=== PATIENT | female | born 1975 | race Caucasian/White ===

== ENCOUNTER → 2019-02-17 08:19 | Outpatient (CLI) | payer OTHER, SELFPAY ==
--- NOTE | 2019-02-17 | DI.MG.S_ITS ---
BILATERAL DIGITAL SCREENING MAMMOGRAM 3D/2D WITH CAD: 02/17/2019 CLINICAL: Routine screening. Family history of breast cancer. Comparison is made to exam dated: 06/02/2015 mammogram - [facility]. There are scattered fibroglandular elements in both breasts. Current study was also evaluated with a Computer Aided Detection (CAD) system. No significant masses, calcifications, or other findings are seen in either breast. There has been no significant interval change. IMPRESSION: NEGATIVE There is no mammographic evidence of malignancy. A 1 year screening mammogram is recommended. This exam was interpreted at Station ID: [id number]. NOTE: For mammograms, a report in lay terms will be sent to the patient. Approximately 15% of breast malignancies will not be visualized mammographically. In the management of a palpable breast mass, a negative mammogram must not discourage biopsy of a clinically suspicious lesion. Electronically Signed By: Rodney britton/balaji:02/19/2019 07:29:32 letter sent: Normal Exam ACR BI-RADS Category 1: Negative 3341F
== END ==
PROVIDERS: PCP Family Medicine; Visit Provider Family Medicine
DX: Z12.31 Encounter for screening mammogram for malignant neoplasm of breast (principal); Z80.3 Family history of malignant neoplasm of breast
CPT/HCPCS: 77063; 77067

== ENCOUNTER → 2020-05-28 09:42 | Outpatient (CLI) | payer OTHER, SELFPAY ==
--- NOTE | 2020-05-28 09:44 | DI.US.S_ITS ---
PROCEDURE: US PERIPH VENOUS LOW EXTREM RT INDICATIONS: RIGHT LEG PAIN TECHNIQUE: Real-time imaging, as well as color and pulse Doppler interrogation, were performed of the lower extremity deep veins from the inguinal ligament to the popliteal fossa. COMPARISON: None. FINDINGS: The common femoral, femoral and popliteal veins are normally compressible, and free of intraluminal thrombus. Color and pulse Doppler demonstrate normal phasic intraluminal flow. There is normal augmentation response to distal compression maneuver. IMPRESSION: No sonographic evidence of DVT. Dictated by: Justin Hdez M.D. on 05/28/2020 at 10:51 Approved by: Justin Hdez M.D. on 05/28/2020 at 10:52
== END ==
PROVIDERS: PCP Family Medicine; Referring Provider Internal Medicine; Visit Provider Internal Medicine
DX: M79.661 Pain in right lower leg (principal)
CPT/HCPCS: 93971

== ENCOUNTER → 2021-06-30 07:40 | Outpatient (CLI) | payer OTHER, SELFPAY ==
--- NOTE | 2021-06-30 | DI.MG.S_ITS ---
BILATERAL DIGITAL SCREENING MAMMOGRAM 3D/2D WITH CAD: 06/30/2021 CLINICAL: Routine screening. Family history of breast cancer. Comparison is made to exams dated: 02/17/2019 mammogram and 06/02/2015 mammogram - [facility]. There are scattered fibroglandular elements in both breasts. Current study was also evaluated with a Computer Aided Detection (CAD) system. No significant masses, calcifications, or other findings are seen in either breast. There has been no significant interval change. IMPRESSION: NEGATIVE There is no mammographic evidence of malignancy. A 1 year screening mammogram is recommended. This exam was interpreted at Station ID: [id number]. NOTE: For mammograms, a report in lay terms will be sent to the patient. Approximately 15% of breast malignancies will not be visualized mammographically. In the management of a palpable breast mass, a negative mammogram must not discourage biopsy of a clinically suspicious lesion. Electronically Signed By: Marcial pickard/balaji:06/30/2021 08:59:10 letter sent: Normal Exam ACR BI-RADS Category 1: Negative 3341F
== END ==
PROVIDERS: PCP Family Medicine; Referring Provider Family Medicine; Visit Provider Family Medicine
DX: Z12.31 Encounter for screening mammogram for malignant neoplasm of breast (principal); Z80.3 Family history of malignant neoplasm of breast
CPT/HCPCS: 77063; 77067

== ENCOUNTER → 2021-07-15 14:49 | Outpatient (CLI) | payer OTHER, SELFPAY ==
[2021-07-15 15:30] LABS: COVID19 -Nasal RAPID Negative (Negative)
== END ==
PROVIDERS: PCP Family Medicine; Visit Provider Surgery
DX: Z01.812 Encounter for preprocedural laboratory examination (principal); Z20.822 Contact with and (suspected) exposure to COVID-19
CPT/HCPCS: 87635; C9803

== ENCOUNTER 2021-07-16 13:17 | Day surgery (SDC) | payer OTHER, SELFPAY ==
--- NOTE | 2021-07-16 | PATH_ITS ---
[facility] Accession Number: [id number] . 01 Material submitted: . PART A: rectum - RECTAL POLYP PART B: rectum - RECTAL POLYP BASE . 02 Diagnosis: A. Rectum, Polyp, Biopsy: Tubulovillous adenoma. No evidence of malignancy or high-grade dysplasia. The excision appears complete. . B. Rectal Polyp Base, Biopsies: Colonic mucosa with no diagnostic abnormality. Negative for active, chronic, and microscopic colitis. Negative for dysplasia and malignancy. MRV 07/21/2021 1046 Local . 02 Electronically signed: . Kymberly Martinez MD, Pathologist NPI- [id number] . 01 Gross description: . A. Received in formalin, labeled rectal polyp, is one piece of hodge, soft tissue measuring 2.3 x 1.2 x 1.8 cm. The tissue is inked, serially sectioned into six slices, and entirely submitted in cassettes A1-A3, with two slices per cassette. B. Received in formalin, labeled rectal polyp base, are two pieces of hodge, soft tissue measuring 1.0 x 0.5 x 0.4 cm an 0.6 x 0.5 x 0.4 cm. The first segment is inked, trisected, and entirely submitted in cassette B1. The second segment is inked, bisected, and entirely submitted in cassette B2. ([id number]) /FRR 07/19/2021 0945 Local . 02 Pathologist provided ICD-10: D12.8 . 02 CPT . 732000, 239860 Specimen Comment: A courtesy copy of this report has been sent to [phone] Performed at: 01 [facility] [address] [place] [address] [address] [facility] [place], [place] [id number] MD Fito Francis MD Phone: [phone] Performed at: 02 [facility] [address] [place] [id number] MD Kymberly Martinez MD Phone: [phone]
[2021-07-16 13:34] VITALS: BP 130/89; PULSE 104; RESP 16; TEMP 36.6; O2SAT 98
[2021-07-16 13:36] VITALS: BMI 26.1
[2021-07-16] MEDS: LACTATED RINGERS 1,000 ML 42 ML IV (14:00)
--- NOTE | 2021-07-16 14:03 | PM.PREOP ---
Pre-operative Note COVID-19 COVID-19 status: Negative Result date/Date tested (Pos, Neg/Pending): 07/15/21 Interval Note History & Physical reviewed/Exam performed by Physician: Yes Changes to H&P: No ASA Class (for procedural sedation): II
[2021-07-16] MEDS: MIDAZOLAM 5 MG/5 ML VIAL IV (14:09)
[2021-07-16] MEDS: fentaNYL 250 MCG/5 ML INJ IV (14:09)
--- NOTE | 2021-07-16 14:54 | PM.OP.COLON ---
Operative Date/Time/Diagnoses Date of procedure: 07/16/21 Time of procedure: 14:54 Pre-op diagnosis: Change in bowel habits Post-op diagnosis: same Procedure & Clinicians Study performed: Colonoscopy Same procedure as scheduled: Yes Surgeon: Adarsh Roland Procedure Notes Procedure in detail: Procedure: The patient was brought to the endoscopy suite, placed in left lateral decubitus position. The patient was connected to monitoring devices. A time-out was performed. Sedation was administered. Once the patient was adequately sedated, a digital rectal exam was performed and was normal. The scope was then inserted and advanced to the cecum where the appendiceal orifice was identified and photographed. The scope was then slowly withdrawn over greater than 6 minutes. Mucosa was thoroughly inspected. There were no polyps until the mid rectum where a large pedunculated polyp was seen emanating from the mid rectum at about 5 cm from the dentate line. This large polyp appeared to be on a long stalk. A snare was placed around the base of the stalk and cautery was used to excise the polyp. The Deluca Net was introduced to retrieve the polyp which turned out to be about 3 cm in diameter. The base was clean and blood less however we decided to take additional tissue from the base to be sure there is no additional adenomatous tissue left behind. The mucosa here was lifted with saline in 2 locations near the distal edge of the base of the polyp and the hot snare was used to remove additional tissue which was sent as ?polyp base. Finally we went back in injected some tattoo ink along the distal edge of the biopsy site. The scope was retroflexed in the rectum. No other abnormalities were noted. The scope was straightened and removed. The patient was awakened and brought to recovery. Versed: 11 mg Fentanyl: 250 mcg EBL: 5 mL Findings: 3 cm pedunculated polyp on a stalk emanating from mid rectum. Scope withdrawal time: 26 Sedation minutes: 42 Post-procedure Recommendations: Will call with biopsy results Disposition: PACU
[2021-07-16 14:57] VITALS: BP 118/80; PULSE 118; RESP 24; TEMP 37.7; O2SAT 96
[2021-07-16 15:02] VITALS: BP 139/91; PULSE 120; RESP 24; O2SAT 96
[2021-07-16 15:07] VITALS: BP 139/88; PULSE 116; RESP 18; O2SAT 94
[2021-07-16 15:12] VITALS: BP 156/97; PULSE 112; RESP 24; O2SAT 95
[2021-07-16 15:17] VITALS: BP 145/105; PULSE 109; RESP 17; O2SAT 94
== END 2021-07-16 15:26 | disposition home or self-care (01) ==
PROVIDERS: PCP Family Medicine; Referring Provider Surgery; Visit Provider Surgery
PROC: 0DJD8ZZ Inspection of Lower Intestinal Tract, Via Natural or Artificial Opening Endoscopic (ICD-10-PCS; CPT 45378; principal; 2021-07-16 13:30)
DX: R19.4 Change in bowel habit (principal); D12.8 Benign neoplasm of rectum
CPT/HCPCS: 45390; 45381; 99152; 99153; J2250; J3010

== ENCOUNTER 2022-10-01 00:07 | Emergency (ER) | payer OTHER, SELFPAY ==
[2022-10-01] VITALS (13 sets, daily range): BP systolic 93–130; BP diastolic 51–87; PULSE 92–105; RESP 13–24; TEMP 36.6; O2SAT 88–96; BMI 23.0
--- NOTE | 2022-10-01 00:25 | DI.RAD.S_ITS ---
PROCEDURE: XR CHEST 1V INDICATIONS: chest pain TECHNIQUE: One view of the chest was acquired. COMPARISON: None. FINDINGS: Surgical changes and devices: None. Lungs and pleura: Lungs are clear. No pleural effusions or pneumothorax. Mediastinum: Mediastinal contours appear normal. Heart size is normal. Bones and chest wall: No suspicious bony lesions. Overlying soft tissues appear unremarkable. IMPRESSION: 1. No acute cardiopulmonary disease. Dictated by: Fito Ortiz M.D. on 10/01/2022 at 1:51 Approved by: Fito Ortiz M.D. on 10/01/2022 at 1:51
[2022-10-01] MEDS: ASPIRIN 81 MG CHEW TAB 324 MG PO (00:29)
[2022-10-01 00:39] LABS: Add Manual Diff / Slide Review NO; Basophils Absolute Auto 100 /uL (0-100); Basophils Percent Auto 0.9 % (0-2); Eosinophils Absolute Auto 100 /uL (0-450); Eosinophils Percent Auto 0.9 % (2-4); Hematocrit 45.5 % (36-46); Lymphocytes Absolute Auto 5000 /uL (1100-4500); Lymphocytes Percent Auto 36.6 % (25-40); Mean Corpuscular HGB Conc 35.1 % (30-36); Mean Corpuscular Volume 108.3 fL (80-100); Monocytes Absolute Auto 500 /uL (0-900); Monocytes Percent Auto 3.9 % (3-14); Neutrophils Absolute Auto 7900 /uL (1500-7000); Neutrophils Percent Auto 57.7 % (50-75); Platelet Count 208 X10^3/uL (150-400); Red Cell Distribution Width 13.3 % (11.6-14.8); White Blood Cell Count 13.7 X10^3/uL (4.5-11.0)
[2022-10-01 00:49] LABS: INR 0.9 (0.9-1.3); Prothrombin Time 10.5 SECONDS (10.1-12.7)
[2022-10-01 00:52] LABS: PTT Partial Thromboplastin Tim 33 SECONDS (26-36)
[2022-10-01 00:57] LABS: Alanine Aminotransferase 35 IU/L (<35); Albumin 4.7 g/dL (3.5-5.0); Albumin Globulin Ratio 1.1 (1.0-2.8); Alkaline Phosphatase 76 U/L (38-126); Aspartate Aminotransferase 45 IU/L (14-36); Bilirubin Total 0.5 mg/dL (0.2-1.3); Blood Urea Nitrogen 17 mg/dL (7-17); Calcium 9.8 mg/dL (8.4-10.2); Carbon Dioxide 26 mmol/L (22-32); Chloride 97 mmol/L (98-107); Creatine Kinase 44 U/L (30-135); Estimated Glomerular Filt Rate > 60 mL/min (>60); Globulin 4.1 g/dL (1.7-4.1); Glucose 98 mg/dL (70-100); HEMOLYSIS < 15 (0-50); Lipase 190 U/L (23-300); Magnesium 1.5 mg/dL (1.6-2.3); Sodium 141 mmol/L (137-145); Total Protein 8.8 g/dL (6.3-8.2)
[2022-10-01 01:08] LABS: Troponin I < 0.012 ng/mL (0.01-0.034)
--- NOTE | 2022-10-01 01:16 | ED_ITS ---
HPI - Chest Pain General Chief Complaint: Chest Pain Stated Complaint: Chest pain Time Seen by Provider: 10/01/22 00:17 Source: patient Mode of arrival: Ambulatory Limitations: no limitations History of Present Illness HPI narrative: This is a 47-year-old female with history of tachycardia in the past and tobacco use. Patient presents with complaint of left-sided substernal pain that woke her up from sleep kind of localized in the lower left border. She states she is not had similar in the past. It did not radiate anywhere. It woke her up at about 11:00 p.m.. She states it resolved after taking 4 baby aspirin here in the emergency department. She denies shortness of breath, denies fevers or chills, no cold cough or congestion. No nausea or vomiting, no abdominal back or flank pain, no funny taste in her mouth. No swelling in her extremities no issues with bowel movements or urination. Patient states he did use to take metoprolol for tachycardia but it improved longer takes it. Patient states she is had appendectomy in the past. She states no prior cardiac workup other than EKG, she is never had a stress test or echo. No known drug allergies. She does use tobacco daily. 2-3 alcoholic drinks daily, she uses marijuana but no other illicit. No known cardiac, embolic or vascular history for patient or her family. No long distance travel or sitting for prolonged periods. She is not on estrogen or control. Dr. Vera is her primary care physician. Related Data Home Medications Medication Instructions Recorded Confirmed metoprolol tartrate 50 mg tablet 50 mg PO DAILY 06/29/21 07/16/21 Allergies Allergy/AdvReac Type Severity Reaction Status Date / Time No Known Drug Allergies Allergy Verified 10/01/22 00:24 Review of Systems Review of Systems ROS Unobtainable: All systems reviewed & are unremarkable except as noted in HPI and below Patient History Family History Family/Other Cancer Family/Other Cancer Social History household members: family Smoking Status: Current every day smoker Smoking Status: Current every day smoker alcohol intake frequency: 3 or more drinks per day Alcohol type: hard liquor Substance Use Type: does not use Exam Narrative Exam Narrative: GENERAL: Alert and oriented x three, female in mild distress. HEENT: Head normocephalic, atraumatic, EOMI, pupils reactive, face symmetric, moist mucous membranes NECK: Supple, full range of motion CARDIOVASCULAR: Regular rate and rhythm without murmurs, rubs or gallops. No JVD. Swelling bilateral lower extremities. Patient has slight tenderness in the left substernal border. RESPIRATORY: Breath sounds equal bilaterally, no wheezes rales or rhonchi. No tachypnea or accessory muscle use. ABDOMEN: Soft, nontender. Normoactive bowel sounds all 4 quadrants. No guarding or rebound, rigidity, no mass : No CVA tenderness EXTREMITIES: Normal range of motion, no clubbing or edema. Neurovascularly inta ct NEUROLOGICAL: Cranial nerves II through XII grossly intact. Moving all extremities SKIN: Warm, dry, no petechiae, no rashes or lesions. Initial Vital Signs Initial Vital Signs: Vital Signs Temperature 98 F 10/01/22 00:18 Pulse Rate 99 H 10/01/22 00:18 Respiratory Rate 20 10/01/22 00:18 Blood Pressure 130/87 10/01/22 00:18 Pulse Oximetry 96 10/01/22 00:18 Oxygen Delivery Method Room Air 10/01/22 00:18 Course Orders Ordered: ED Orders 10/01/22 EKG-12 Lead Routine 10/01/22 00:25 XR chest 1V Stat EKG-12 Lead Stat 10/01/22 00:27 Complete Blood Count AUTO DIFF Stat Comprehensive Metabolic Panel Stat D Dimer Stat Lipase Stat Magnesium Stat PTT Partial Thromboplastin Pal Stat Prothrombin Time INR Stat Troponin & CK Cardiac Panel Stat 10/01/22 02:30 Trop I [Troponin I] Stat 10/01/22 03:00 CT angio chest PE protocol Stat 10/01/22 03:50 Urine Microscopic Stat Discontinued Medications Aspirin (Aspirin 81 Mg Chew Tab) 324 mg PO NOW ONE Stop: 10/01/22 00:26 Last Admin: 10/01/22 00:29 Dose: 324 mg Documented By: RUPESH Magnesium Sulfate (Magnesium Sulfate) 2 gm in 50 mls @ 25 mls/hr IV NOW ONE Stop: 10/01/22 03:26 Last Admin: 10/01/22 01:35 Dose: 25 mls/hr Documented By: RUPESH Co-signed By: GC Sodium Chloride (Normal Saline 0.9%) 1,000 mls @ 1,000 mls/hr IV BOLUS ONE Stop: 10/01/22 02:26 Last Infusion: 10/01/22 02:33 Dose: 0 mls/hr Documented By: Admin: 10/01/22 01:34 Dose: 1,000 mls/hr Documented By: RUPESH Potassium Chloride (Potassium Chloride 20 Meq/15 Ml Udc) 40 meq PO NOW ONE Stop: 10/01/22 01:28 Last Admin: 10/01/22 01:40 Dose: 40 meq Documented By: RUPESH Potassium Chloride (Potassium Chloride 20 Meq/15 Ml Udc) 20 meq PO NOW ONE Stop: 10/01/22 01:38 Last Admin: 10/01/22 01:40 Dose: Not Given Documented By: RUPESH Vital Signs Vital signs: Vital Signs - 8 hr 10/01/22 00:18 10/01/22 00:20 10/01/22 00:30 Temperature 98 F Pulse Rate 99 H 100 H 103 H Respiratory Rate 20 20 23 Blood Pressure 130/87 Pulse Oximetry 96 95 Oxygen Delivery Method Room Air Room Air Oxygen Flow Rate 10/01/22 00:51 10/01/22 00:51 10/01/22 01:00 Temperature Pulse Rate 97 H Respiratory Rate 24 Blood Pressure 102/68 112/74 Pulse Oximetry 94 Oxygen Delivery Method Oxygen Flow Rate 10/01/22 01:00 10/01/22 01:30 10/01/22 01:30 Temperature Pulse Rate 101 H 100 H Respiratory Rate 22 24 Blood Pressure 120/65 Pulse Oximetry 93 88 L Oxygen Delivery Method Room Air Oxygen Flow Rate 10/01/22 01:35 10/01/22 02:00 10/01/22 02:00 Temperature Pulse Rate 105 H Respiratory Rate 19 Blood Pressure 95/60 Pulse Oximetry 96 96 Oxygen Delivery Method Nasal Cannula Oxygen Flow Rate 1 10/01/22 02:30 10/01/22 02:30 10/01/22 03:00 Temperature Pulse Rate 95 H Respiratory Rate 24 Blood Pressure 120/67 93/51 L Pulse Oximetry 96 Oxygen Delivery Method Nasal Cannula Oxygen Flow Rate 1 10/01/22 03:00 10/01/22 03:25 10/01/22 03:25 Temperature Pulse Rate 92 H 97 H Respiratory Rate 18 19 Blood Pressure 123/68 Pulse Oximetry 95 93 Oxygen Delivery Method Nasal Cannula Room Air Oxygen Flow Rate 1 10/01/22 03:30 10/01/22 03:30 10/01/22 04:00 Temperature Pulse Rate 98 H Respiratory Rate 13 Blood Pressure 107/62 108/65 Pulse Oximetry 93 Oxygen Delivery Method Oxygen Flow Rate 10/01/22 04:00 Temperature Pulse Rate 93 H Respiratory Rate 18 Blood Pressure Pulse Oximetry 94 Oxygen Delivery Method Room Air Oxygen Flow Rate MDM - Chest Pain Lab Data 10/01/22 00:27 10/01/22 00:27 Labs: Lab Results 10/01/22 10/01/22 10/01/22 Range/Units 00:27 00:27 00:27 WBC 13.7 H (4.5-11.0) X10^3/uL RBC 4.20 (4.0-5.2) X10^6/uL Hgb 16.0 (12.0-16.0) g/dL Hct 45.5 (36-46) % MCV 108.3 H (80-100) fL MCH 38.0 H (26-34) PG MCHC 35.1 (30-36) % RDW 13.3 (11.6-14.8) % Plt Count 208 (150-400) X10^3/uL Neut % (Auto) 57.7 (50-75) % Lymph % (Auto) 36.6 (25-40) % [facility] % (Auto) 3.9 (3-14) % Eos % (Auto) 0.9 L (2-4) % Baso % (Auto) 0.9 (0-2) % Neut # (Auto) 7900 H (8407-6869) /uL Lymph # (Auto) 5000 H (3597-2236) /uL [facility] # (Auto) 500 (0-900) /uL Eos # (Auto) 100 (0-450) /uL Baso # (Auto) 100 (0-100) /uL PT 10.5 (10.1-12.7) SECONDS INR 0.9 (0.9-1.3) APTT 33 (26-36) SECONDS D-Dimer (<500) ng/ml Sodium 141 (137-145) mmol/L Potassium 3.0 L (3.4-5.1) mmol/L Chloride 97 L (98-107) mmol/L Carbon Dioxide 26 (22-32) mmol/L BUN 17 (7-17) mg/dL Creatinine 0.68 (0.52-1.04) mg/dL Estimated GFR > 60 (>60) mL/min BUN/Creatinine Ratio 25.0 H (6-22) Glucose 98 (70-100) mg/dL Calcium 9.8 (8.4-10.2) mg/dL Magnesium 1.5 L (1.6-2.3) mg/dL Total Bilirubin 0.5 (0.2-1.3) mg/dL AST 45 H (14-36) IU/L ALT 35 H (<35) IU/L Alkaline Phosphatase 76 (38-126) U/L Total Creatine Kinase 44 (30-135) U/L Troponin I < 0.012 (0.01-0.034) ng/mL Total Protein 8.8 H (6.3-8.2) g/dL Albumin 4.7 (3.5-5.0) g/dL Globulin 4.1 (1.7-4.1) g/dL Albumin/Globulin Ratio 1.1 (1.0-2.8) Lipase 190 (23-300) U/L Urine RBC (0-5/HPF) Urine WBC (0-5/HPF) Ur Squamous Epith Cells (0-5/HPF) Urine Bacteria (None) Hyaline Casts (None) Ur Culture Indicated? 10/01/22 10/01/22 10/01/22 Range/Units 00:27 02:30 03:17 WBC (4.5-11.0) X10^3/uL RBC (4.0-5.2) X10^6/uL Hgb (12.0-16.0) g/dL Hct (36-46) % MCV (80-100) fL MCH (26-34) PG MCHC (30-36) % RDW (11.6-14.8) % Plt Count (150-400) X10^3/uL Neut % (Auto) (50-75) % Lymph % (Auto) (25-40) % [facility] % (Auto) (3-14) % Eos % (Auto) (2-4) % Baso % (Auto) (0-2) % Neut # (Auto) (2376-0168) /uL Lymph # (Auto) (5243-2236) /uL [facility] [place] [facility] # (Auto) (0-900) /uL Eos # (Auto) (0-450) /uL Baso # (Auto) (0-100) /uL PT (10.1-12.7) SECONDS INR (0.9-1.3) APTT (26-36) SECONDS D-Dimer < 215 (<500) ng/ml Sodium (137-145) mmol/L Potassium (3.4-5.1) mmol/L Chloride (98-107) mmol/L Carbon Dioxide (22-32) mmol/L BUN (7-17) mg/dL Creatinine (0.52-1.04) mg/dL Estimated GFR (>60) mL/min BUN/Creatinine Ratio (6-22) Glucose (70-100) mg/dL Calcium (8.4-10.2) mg/dL Magnesium (1.6-2.3) mg/dL Total Bilirubin (0.2-1.3) mg/dL AST (14-36) IU/L ALT (<35) IU/L Alkaline Phosphatase (38-126) U/L Total Creatine Kinase (30-135) U/L Troponin I < 0.012 (0.01-0.034) ng/mL Total Protein (6.3-8.2) g/dL Albumin (3.5-5.0) g/dL Globulin (1.7-4.1) g/dL Albumin/Globulin Ratio (1.0-2.8) Lipase (23-300) U/L Urine RBC None seen (0-5/HPF) Urine WBC None seen (0-5/HPF) Ur Squamous Epith Cells 0-1 /hpf (0-5/HPF) Urine Bacteria None seen (None) Hyaline Casts 0-1/lpf (None) Ur Culture Indicated? Cult not indicated Urine Dip Bedside Urine Glucose Negative Bedside Urine Bilirubin - Negative Bedside Urine Ketone +/- 5 Urine Specific [place] 1.015 Bedside Urine Occult Blood +/- Bedside Urine pH 6.0 Bedside Urine Protein - Negative Bedside Urine Urobilinogen - Negative Bedside Urine Nitrite - Negative Bedside Urine Leukocytes - Negative Esterase Imaging Data Chest x-ray: My Impression: no acute process noted. Radiologist's Impression: Nga Valadez??47??F??1975 ? Allergy/Adv: No Known Drug Allergies (More??) Close Chest X-Ray (Signed) Fito Ortiz - 10/01/22 Telemetry Strips 07/16/21 Mammogram Screening (Signed) Marcial Azevedo - 06/30/21 Vascular Ultrasound (Signed) Justin Hdez - 05/28/20 Mammogram Screening (Signed) Rodney Bobo - 02/17/19 Launch?[address] [address] XRay Report Signed Patient: Nga Valadez MR#: [id number] : 1975 Acct:[id number] Age/Sex: 47 / F Date of Service: 10/01/22 Loc: ED Accession Number: [id number] ?? Procedure: XR chest 1V Ordering Provider: Rose Rockwell D.O. PROCEDURE:? XR CHEST 1V ? INDICATIONS:? chest pain ? TECHNIQUE:? One view of the chest was acquired.? ? COMPARISON:? None. ? FINDINGS:? ? Surgical changes and devices:? None.? ? Lungs and pleura:? Lungs are clear.? No pleural effusions or pneumothorax.? ? Mediastinum:? Mediastinal contours appear normal.? Heart size is normal.? ? Bones and chest wall:? No suspicious bony lesions.? Overlying soft tissues appear unremarkable.? ? IMPRESSION:? ? 1.? No acute cardiopulmonary disease. ? ? ? Dictated by: Fito Ortiz M.D. on 10/01/2022 at 1:51 ? ? Approved by: Fito Ortiz M.D. on 10/01/2022 at 1:51?? ECG Data Attestation: I personally reviewed and interpreted this ECG as follows: Prior ECG tracings: not available for review Interpretation: 00:27 Sinus rhythm rate of 95 VA 164 QRS of 72 QTC of 457. No acute ST elevation or depression is appreciated. EKG from 00:20 was redone, inadequate tracing. EKG2. Sinus rhythm, rate of 91 VA 164 QRS 82 and QTC of 460, no acute ST changes appreciated from prior. MDM Narrative Medical decision making narrative: This is a 47-year-old female who presents with complaint of left substernal chest pain without radiation starting 11:00 a.m. this evening. Patient's been slightly tachycardic in the 90s to 101 range, CBC shows leukocytosis of 13.7, potassium 3 with chloride 97 Mag is 1.5, renal function normal with negative coags. AST ALT are 45 and 35 normal bilirubin and lipase. Troponin is negative, Ddimer is negative. chest x-ray does not show acute change. Formal read is negative. Patient does not have any obvious ST segment changes on workup. Discussed with patient plan for fluids, potassium and magnesium replacement, repeat troponin at 2 hours is negative and EKG shows no acute changes. Patient did drop her O2 while asleep, improved after CT and awake. Patient did have any medications that would drop her she does use tobacco, she is never had evaluation for sleep apnea. CT angio was obtained no significant change appreciated, no central pulmonary emboli suboptimal opacification peripheral p ulmonary arterial tree no evidence of pulmonary infarction. Reviewed all findings with patient. Patient has not been continued hypoxia lap for follow-up with Dr. Vera, for repeat labs and further workup. Discharge Plan Departure Patient Disposition: Home Clinical Impression: Chest pain, Hypomagnesemia, Hypokalemia Instructions: DI for Atypical Chest Pain Activity Restrictions/Additional Instructions: Follow up with Dr. Vera for recheck, also please follow up to have your labs rechecked in the next 24-48 hours both your potassium level and magnesium were low. You were noted to have some mild tachycardia throughout your stay, talk with your physician about whether or not to restart metoprolol. It was also noted that your oxygen level dropped while asleep, I would recommend talking with Dr. Vera about evaluation for sleep apnea and/or further cardiac workup. Please return if you have new or recurrent symptoms new chest pain, shortness of breath, lightheadedness or passing out, new swelling in her extremities or other new or concerning changes. Prescriptions: No Action metoprolol tartrate 50 mg tablet 50 mg PO DAILY Patient Comments: hasnt taken in 2 months ago. Referrals: Gregorio Vera MD [Primary Care Provider] - Stand Alone Forms: Patient Portal/API
[2022-10-01] MEDS: SODIUM CHLORIDE 0.9% 1,000 ML 1000 ML IV (01:34)
[2022-10-01] MEDS: MAGNESIUM SULFATE 2 GM/50 ML PIGGYBACK IV (01:35)
[2022-10-01] MEDS: POTASSIUM CHLORIDE 20 MEQ/15 ML UDC 40 MEQ PO (01:40)
[2022-10-01 01:44] LABS: D Dimer < 215 ng/ml (<500)
[2022-10-01 03:00] LABS: Troponin I < 0.012 ng/mL (0.01-0.034)
--- NOTE | 2022-10-01 03:00 | DI.CT.S_ITS ---
PROCEDURE: CT ANGIO CHEST PE PROTOCOL INDICATIONS: chest pain, left substernal, tachy, tob hx TECHNIQUE: After the administration of intravenous contrast, 2 mm thick sections acquired from the pulmonary apices to the posterior costophrenic angles. 3-dimensional maximum intensity projection (MIP) coronal and sagittal reformats were then acquired through the thorax. For radiation dose reduction, the following was used: automated exposure control, adjustment of mA and/or kV according to patient size. COMPARISON: None. FINDINGS: Image quality: Excellent. Pulmonary arteries: Pulmonary arteries are normal in size, and demonstrate no intraluminal filling defects to suggest central pulmonary embolism. Lungs and pleura: Lungs are clear. No pleural effusions or pneumothorax. Central and peripheral airways are patent. Mediastinum: Heart size is normal, without pericardial effusion. No mediastinal or hilar adenopathy. Thoracic aorta is normal in caliber and enhancement. Esophagus is normal in caliber, without hiatal hernia. Bones and chest wall: No suspicious bony lesions. Ribs and thoracic spine appear intact throughout. Thyroid gland is unremarkable. No axillary or supraclavicular adenopathy. Abdomen: Visualized upper abdominal solid organs appear normal in the early arterial phase of enhancement. IMPRESSION: 1. No acute pulmonary embolus. 2. No acute pulmonary findings. These findings are concordant with the overnight interpretation. Dictated by: Elba Cantor M.D. on 10/01/2022 at 8:07 Approved by: Elba Cantor M.D. on 10/01/2022 at 8:10
[2022-10-01 04:05] LABS: Bacteria Urine None Seen; Culture Indicated Urine Cult Not Indicated; Hyaline Casts Urine 0-1/LPF; RBC Urine None Seen (0-5/HPF); Squamous Epithelial Cell Urine 0-1 /HPF (0-5/HPF); WBC Urine None Seen (0-5/HPF)
== END 2022-10-01 04:21 | disposition home or self-care (01) ==
PROVIDERS: Emergency Provider Emergency Medicine; PCP Family Medicine
DX: R07.9 Chest pain, unspecified (principal); E83.42 Hypomagnesemia; E87.6 Hypokalemia; R00.0 Tachycardia, unspecified
CPT/HCPCS: 36415; 71045; 71275; 80053; 81003; 81015; 82550; 83690; 83735; 84484; 85025; 85379; 85610; 85730; 93005; 93010; 96365; 96366; 99284; 99285; J3475; Q9967

== ENCOUNTER → 2022-12-29 11:20 | Outpatient (CLI) | payer OTHER, SELFPAY ==
--- NOTE | 2022-12-29 | DI.RAD.S_ITS ---
PROCEDURE: XR RIBS RT MIN 3V W CXR 1V INDICATIONS: RIB PAIN TECHNIQUE: 2 views of the right ribs were acquired, along with a single view chest. COMPARISON: [facility], , XR CHEST 1V, 10/01/2022, 0:25. FINDINGS: Surgical changes and devices: None. Bones and chest wall: No fractures or dislocations. No suspicious bony lesions. Overlying soft tissues appear unremarkable. Lungs and pleura: Question trace right pleural effusion. No pneumothorax. Lungs appear clear. Mediastinum: Mediastinal contours appear normal. Heart size is normal. IMPRESSION: 1. No displaced right rib fracture. 2. Trace right pleural effusion is suspected. Dictated by: Rocío Tavarez M.D. on 12/29/2022 at 12:53 Approved by: Rocío Tavarez M.D. on 12/29/2022 at 12:56
== END ==
PROVIDERS: PCP Family Medicine; Referring Provider Family Medicine; Visit Provider Family Medicine
DX: R07.81 Pleurodynia (principal)
CPT/HCPCS: 71101

== ENCOUNTER → 2024-02-25 07:47 | Outpatient (CLI) | payer OTHER, SELFPAY ==
--- NOTE | 2024-02-25 | DI.MG.S_ITS ---
BILATERAL DIGITAL SCREENING MAMMOGRAM 3D/2D WITH CAD: 02/25/2024 CLINICAL: Routine screening. Family history of breast cancer. Comparison is made to exams dated: 06/30/2021 mammogram, 02/17/2019 mammogram, and 06/02/2015 mammogram - [facility]. There are scattered areas of fibroglandular density (category b / 25%-50% glandular tissue). Current study was also evaluated with a Computer Aided Detection (CAD) system. No significant masses, calcifications, or other findings are seen in either breast. There has been no significant interval change. IMPRESSION: NEGATIVE There is no mammographic evidence of malignancy. A 1 year screening mammogram is recommended. Based on the Tyrer Cuzick model (a risk assessment model) the patient's lifetime risk is 17.3% and her 10 year risk is 4.2%. According to the ACR, ACS, and NCCN guidelines, an annual breast MRI exam along with mammogram is recommended if the patient's lifetime risk is 20% or greater. This exam was interpreted at Station ID: [id number]. NOTE: For mammograms, a report in lay terms will be sent to the patient. Approximately 15% of breast malignancies will not be visualized mammographically. In the management of a palpable breast mass, a negative mammogram must not discourage biopsy of a clinically suspicious lesion. Electronically Signed By: Sapna anders/balaji:02/27/2024 08:22:59 letter sent: Normal Exam ACR BI-RADS Category 1: Negative
== END ==
PROVIDERS: PCP Family Medicine; Referring Provider Family Medicine; Visit Provider Family Medicine
DX: Z12.31 Encounter for screening mammogram for malignant neoplasm of breast (principal); Z80.3 Family history of malignant neoplasm of breast
CPT/HCPCS: 77063; 77067

== ENCOUNTER → 2024-03-30 09:19 | Outpatient (CLI) | payer OTHER, SELFPAY ==
--- NOTE | 2024-03-30 | DI.RAD.S_ITS ---
PROCEDURE: XR CHEST 2V INDICATIONS: acute cough, smoker TECHNIQUE: 2 views of the chest were acquired. COMPARISON: [facility], CR, XR CHEST 1V, 10/01/2022, 0:25. FINDINGS: Surgical changes and devices: None. Lungs and pleura: Lungs are clear. No pleural effusions or pneumothorax. Mediastinum: Mediastinal contours are normal. Heart size is normal. Bones and chest wall: No suspicious bony abnormalities. Soft tissues appear unremarkable. IMPRESSION: No acute cardiopulmonary pathology. Dictated by: Tan Nayak M.D. on 03/30/2024 at 13:47 Approved by: Tan Nayak M.D. on 03/30/2024 at 13:47
== END ==
PROVIDERS: PCP Family Medicine; Referring Provider Family Medicine; Visit Provider Family Medicine
DX: R05.1 Acute cough (principal); F17.200 Nicotine dependence, unspecified, uncomplicated
CPT/HCPCS: 71046

== ENCOUNTER → 2024-04-09 13:34 | Outpatient (CLI) | payer OTHER, SELFPAY ==
--- NOTE | 2024-04-09 13:35 | DI.ECHO.S_ITS ---
[facility] : : [id number] : [place] : : [id number] : : Phone: [phone] Echocardiogram Report + + :Name: MARCELO HAMPTON Study Date: 04/09/2024 Height: 63 in : :[facility] ReadingLocation: Weight: 137 lb : : Gender: Female BSA: 1.6 m2 : :: 1975 Age: 48 yrs BP: 163/107 mmHg: :Reason For Study: SMOKER, ACUTE COUGH, SINUS TACHYCARDIA : :Ordering Physician: JUVE, : :DANIELLA Bui Performed By: Nichole Justin : :Referring: DANIELLA AN : + + Interpretation Summary The ejection fraction is estimated to be 60-65%. Diastolic parameters suggest probable normal left ventricular diastolic function and normal filling pressures. The right ventricle is normal in size and function. Pulmonary artery pressures cannot be estimated because of the lack of a measurable TR jet velocity. No significant valvular abnormality. Procedure: A two-dimensional transthoracic echocardiogram with color flow and Doppler was performed. The study quality was technically adequate. There is no prior echocardiogram noted for this patient. The patient was in sinus rhythm with heart rates between 79-94 bpm during the exam. Left Ventricle: The left ventricle is normal in size and wall thickness. The ejection fraction is estimated to be 60-65%. There are no obvious focal wall motion abnormalities noted but poor endocardial definition reduces the sensitivity for the detection of such. Diastolic parameters suggest probable normal left ventricular diastolic function and normal filling pressures. Right Ventricle: The right ventricle is normal in size and function. Atria: The left atrial size is normal. Right atrial size is normal. There is no Doppler evidence for an interatrial shunt. Mitral Valve: There is mild mitral annular calcification. The mitral valve leaflets appear borderline thickened, but open well. There is no mitral regurgitation noted. Aortic Valve: The aortic valve is trileaflet. The aortic valve opens well. There is no aortic valve stenosis. No aortic regurgitation is present. Tricuspid Valve: The tricuspid valve leaflets are thin and pliable. There is trace tricuspid regurgitation. Pulmonary artery pressures cannot be estimated because of the lack of a measurable TR jet velocity. Pulmonic Valve: The pulmonic valve is not well visualized. There is no pulmonic valvular regurgitation. Great Vessels: The aortic root is normal size. The dimensions of the ascending aorta are normal. The IVC is of normal diameter and collapses greater than 50% with a sniff. This suggests a low right atrial pressure of 3 mm Hg. Pericardium/ Pleura There is no pericardial effusion. There is no pleural effusion. MMode/2D Measurements & Calculations LVIDd: 4.7 cm LVOT diam: 2.0 cm LVIDs: 3.2 cm Ao root diam: 2.8 cm FS: 32.1 % asc Aorta Diam: 3.2 cm IVSd: 0.68 cm Ao Arch Diam (Prox Trans): 2.3 cm LVPWd: 0.63 cm LV cruz. diameter/BSA (cm/m^2): 2.9 LV sys. diameter/BSA (cm/m^2): 1.9 LA A2 area: 16.6 cm2 RA long axis: 4.5 cm LA A4 area: 17.8 cm2 RA area: 14.3 cm2 LA length (vol): 4.8 cm RA vol: 38.5 ml LA vol: 52.2 ml RA : 23.4 ml/m2 LA vol index: 31.7 ml/m2 IVC diam: 2.0 cm RVD1 (basal): 3.1 cm RVD2 (mid): 2.7 cm TAPSE: 1.8 cm Doppler Measurements & Calculations Ao V2 max: 158.9 cm/sec LVOT Max Bobby: 97.9 cm/sec Ao V2 mean: 111.2 cm/sec LV V1 max P.8 mmHg Ao max P.1 mmHg LV V1 VTI: 19.5 cm Ao mean P.6 mmHg CHARLY(I,D): 2.0 cm2 Ao V2 VTI: 30.2 cm CHARLY(V,D): 2.0 cm2 sev ratio: 0.65 CHARLY indexed to BSA (cm^2/m^2): 1.2 MV E max bobby: 109.6 cm/sec PA V2 max: 93.9 cm/sec MV A max bobby: 92.7 cm/sec PA V2 mean: 69.3 cm/sec MV E/A: 1.2 PA mean P.1 mmHg Med Peak E' Bobby: 11.3 cm/sec PA pr(Accel): 31.0 mmHg E/E' med: 9.7 Lat Peak E' Bobby: 13.8 cm/sec E/E' lat: 7.9 E/e' average: 8.8 MV dec time: 0.16 sec SVLVOT): 61.7 ml Reading Physician:DEONTE
== END ==
PROVIDERS: PCP Family Medicine; Referring Provider Family Medicine; Visit Provider Family Medicine
DX: I34.81 Nonrheumatic mitral (valve) annulus calcification (principal); R05.1 Acute cough; R00.0 Tachycardia, unspecified; F17.200 Nicotine dependence, unspecified, uncomplicated
CPT/HCPCS: 93306

== ENCOUNTER → 2024-04-18 13:17 | Outpatient (CLI) | payer OTHER, SELFPAY | PROVIDERS: PCP Family Medicine; Referring Provider Family Medicine; Visit Provider Family Medicine | DX: R06.00 Dyspnea, unspecified (principal); R05.1 Acute cough; F17.210 Nicotine dependence, cigarettes, uncomplicated; R94.2 Abnormal results of pulmonary function studies | CPT/HCPCS: 94060; 94726; 94729 ==

== ENCOUNTER → 2024-10-10 15:47 | Outpatient (CLI) | payer OTHER, SELFPAY ==
--- NOTE | 2024-10-10 15:54 | DI.US.S_ITS ---
PROCEDURE: US RENAL COMPLETE INDICATIONS: ACTUE RENAL FAILURE TECHNIQUE: Real-time scanning was performed of the kidneys and bladder, with image documentation. COMPARISON: None. FINDINGS: Kidneys: Kidneys are normal in size. Right kidney measures 11.5 cm long; left kidney measures 10.9 cm long. Right renal cortical thickness is 1.3 cm; left renal cortical thickness is 1.9 cm. Renal cortical echotexture is normal. No hydronephrosis or nephrolithiasis. No suspicious solid mass lesions. Bladder: Pre-void bladder volume is 90 mL. The patient was not able to void. Pre-void images demonstrate no intraluminal masses or stones. On pre-void images, bilateral ureteral jets are noted with color Doppler interrogation. (Of note, ureteral jets may not be detectable in up to 25% of cases due to insufficient differences in specific gravity between ureteral and bladder urine). Miscellaneous: No free pelvic fluid. IMPRESSION: No hydronephrosis in normal size kidneys with normal parenchymal echotexture. No focal lesion seen. Dictated by: Siva Amaya M.D. on 10/10/2024 at 19:54 Approved by: Siva Amaya M.D. on 10/10/2024 at 19:56
== END ==
PROVIDERS: PCP Family Medicine; Referring Provider Family Medicine; Visit Provider Family Medicine
DX: N17.9 Acute kidney failure, unspecified (principal)
CPT/HCPCS: 76770

== ENCOUNTER → 2024-10-18 06:42 | Outpatient (CLI) | payer OTHER, SELFPAY ==
--- NOTE | 2024-10-18 06:43 | DI.US.S_ITS ---
PROCEDURE: US ABDOMEN LIMITED INDICATIONS: ELEVATED EFTS TECHNIQUE: Real-time scanning was performed of the abdominal and retroperitoneal organs, with image documentation. COMPARISON: None. FINDINGS: Liver: The liver demonstrates diffusely increased echotexture without focal abnormalities consistent with chronic hepatocellular disease/hepatic steatosis. Gallbladder: Gallbladder is partially contracted. No gallstones. There is mild wall thickening at 4 mm. This may be in part due to incomplete distension although patient has demonstrated adequate fasting. Suggestion of mild wall irregularity which may be related to sludge. Biliary ducts: Intrahepatic bile ducts are non-dilated. Extrahepatic bile duct caliber measures 7 mm. Normal is 6-7 mm or less in diameter, or 10 mm or less post-cholecystectomy. Pancreas: Visualized portions of the pancreas are sonographically normal. Miscellaneous: No free abdominal fluid. IMPRESSION: Mildly contracted appearance of the gallbladder despite adequate fasting with mild wall thickening. No evidence for cholelithiasis or acute cholecystitis. If there is clinical suspicion for gallbladder dysfunction, further evaluation with nuclear medicine HIDA scan can be considered. Mildly increased hepatic echotexture which may be related to hepatic steatosis or sequela of chronic hepatocellular disease. Dictated by: Rodney Bobo M.D. on 10/18/2024 at 9:16 Approved by: Rodney Bobo M.D. on 10/18/2024 at 9:19
== END ==
LOC: US 06:43
PROVIDERS: PCP Family Medicine; Referring Provider Family Medicine; Visit Provider Family Medicine
DX: R10.11 Right upper quadrant pain (principal); R74.8 Abnormal levels of other serum enzymes
CPT/HCPCS: 76705

== ENCOUNTER 2025-02-15 07:15 | Day surgery (SDC) | payer OTHER, SELFPAY ==
[2025-02-12 10:28] VITALS: BMI 22.3
--- NOTE | 2025-02-15 | PATH_ITS ---
[facility] Accession Number: [id number] No. of containers..02 Tissue . 01 Material submitted: . PART A: colon - CECAL POLYPS PART B: rectum - RECTAL MUCOSA, ADJACENT TO TATTOO . 01 Diagnosis: A. CECUM: Fragments of tubular adenoma and sessile serrated lesion. . B. RECTAL MUCOSA: Colonic mucosa with focal hyperplastic changes, suggestive of repair or incidentally sampled hyperplastic polyp. Negative for residual adenoma. HELENE 02/26/20252 Local . 01 Electronically signed: . Germaine Girard DO, Pathologist NPI- [id number] . 01 Gross description: . Received two formalin-filled containers, both labeled with the patient's name: . A. In a container labeled cecal polyps are multiple fragments of hodge, soft tissue which range in size from less than 0.1 cm to 0.4 x 0.3 x 0.3 cm. All fragments are totally submitted in cassette A. B. In a container labeled rectal mucosa. Specimen consists of two fragments of hodge, soft tissue which range in size from 0.5 x 0.4 x 0.4 cm to 0.7 x 0.4 x 0.3 cm. All fragments are totally submitted in cassette B. ([id number]) /ROMÁN 02/20/20258 Local . 01 Pathologist provided ICD-10: Z12.11 . 01 CPT . 137979, 211370 Specimen Comment: A courtesy copy of this report has been sent to [phone] Performed at: [address] [address], [place], [place] [id number] MD Fito Francis MD Phone: [phone]
[2025-02-15 07:34] VITALS: BP 114/83; PULSE 89; RESP 16; TEMP 36.3; O2SAT 98
[2025-02-15] MEDS: LACTATED RINGERS 1,000 ML 42 ML IV (07:53)
--- NOTE | 2025-02-15 08:05 | PM.HP.IH.1 ---
History of Present Illness History of Present Illness Date Patient Seen: 02/15/25 Time Patient Seen: 08:05 Chief complaint: Colonoscopy Narrative: Nga is a 49-year-old woman who had a colonoscopy in 2021 with findings of a tubulovillous adenoma in her rectum measuring approximately 3 cm. She reports no major changes to her health since then. [facility] Medical History (Updated 02/15/25 @ 08:06 by Adarsh Roland MD) Tachycardia Surgical History (Updated 02/12/25 @ 10:27 by Regina Amor RN) Hx of appendectomy Family History Family/Other Cancer Family/Other Cancer Social History household members: family Smoking Status: Current every day smoker alcohol intake: current Meds Home Medications and Allergies Home Medications ?Medication ?Instructions ?Recorded ?Confirmed ?Type metoprolol tartrate 50 mg tablet 50 mg PO DAILY 06/29/21 02/15/25 History lisinopril 20 mg tablet 20 mg PO DAILY 02/15/25 02/15/25 History losartan 50 mg tablet 50 mg PO DAILY 02/15/25 02/15/25 History Allergies Allergy/AdvReac Type Severity Reaction Status Date / Time No Known Drug Allergies Allergy Verified 02/15/25 07:29 Exam Vital Signs (past 8 hours): - 02/15/25 07:34 Temperature 97.4 F L Pulse Rate 89 Respiratory Rate 16 Blood Pressure 114/83 Pulse Oximetry 98 Oxygen Delivery Method Room Air Oxygen Delivery Method Room Air Const General: healthy appearing Assessment & Plan Assessment and plan (1) History of adenomatous polyp: Status: Acute Plan Colonoscopy for history of a tubulovillous adenoma in the mid rectum measuring 3 cm. If she has no adenomatous polyps day we agreed that her next colonoscopy would be in 5 years. Time-Based Coding :: [TOTAL MINUTES] spent with patient and on the chart (including review of chart, obtaining history, exam, reviewing outside data, placing orders, documenting exam and treatment plan, and counseling patient) on [DATE]. [employer]EE [employer] Inspector Document charge(s): No
--- NOTE | 2025-02-15 08:42 | P.OP.COLON_ITS ---
Operative Date/Time/Diagnoses Date of procedure: 02/15/25 Time of procedure: 08:42 Pre-op diagnosis: History of tubulovillous adenoma Post-op diagnosis: same Procedure & Clinicians Study performed: Colonoscopy Same procedure(s) as scheduled: Yes Surgeon: Adarsh Roland Anesthesia Type: MAC +/- Procedure Notes Procedure in detail: Surgeon: Adarsh Roland MD Anesthesia: Zorina Chu SHIFT SUPERINTENDENT CAUSTIC CRESYLATE Procedure: The patient was brought to the endoscopy suite, placed in left later al decubitus position. The patient was connected to monitoring devices. A time-out was performed. Sedation was administered. Once the patient was adequately sedated, a digital rectal exam was performed and was normal. The scope was then inserted and advanced to the cecum where the appendiceal orifice was identified and photographed. The scope was then slowly withdrawn over greater than 6 minutes. The mucosa was thoroughly inspected. There was a sessile 1 cm polyp in the cecum next to a 5 mm polyp. Both polyps were removed with a cold snare and sent together. There was tattoo ink noted in the mid rectum from the prior polypectomy. There was no obvious recurrence of the polyp but there was some irregular mucosa near the edges of the tattoo which were removed with the cold snare and sent as rectal mucosa adjacent to tattoo. The scope was retroflexed in the rectum. No other abnormalities were found. The scope was straightened and removed. The patient was awakened and brought to recovery. Scope withdrawal time: 14 minutes Sedation time: 20 minutes Findings: 1 cm polyp in the cecum, 5 mm polyp in the cecum and irregular mucosa adjacent to the tattoo ink in the mid rectum Estimated Blood Loss: 5 Complications: none Post-procedure Disposition: PACU
[2025-02-15 08:46] VITALS: BP 96/64; PULSE 91; RESP 20; TEMP 37.3; O2SAT 99
[2025-02-15 08:52] VITALS: BP 103/61; PULSE 84; RESP 22; O2SAT 100
[2025-02-15 08:56] VITALS: BP 97/62; PULSE 81; RESP 23; TEMP 36.9; O2SAT 100
[2025-02-15 09:02] VITALS: BP 98/64; PULSE 82; RESP 24; TEMP 36.2; O2SAT 100
[2025-02-15 09:07] VITALS: BP 104/64
== END 2025-02-15 09:19 | disposition home or self-care (01) ==
PROVIDERS: PCP Family Medicine; Referring Provider Family Medicine; Visit Provider Surgery
PROC: 0DJD8ZZ Inspection of Lower Intestinal Tract, Via Natural or Artificial Opening Endoscopic (ICD-10-PCS; CPT 45378; principal; 2025-02-15 08:15)
DX: Z12.11 Encounter for screening for malignant neoplasm of colon (principal); Z86.0101 Personal history of adenomatous and serrated colon polyps; I10 Essential (primary) hypertension; F17.200 Nicotine dependence, unspecified, uncomplicated; D12.0 Benign neoplasm of cecum
CPT/HCPCS: 45385; J2704; J7120